=== PATIENT | male | born 1960 | race Caucasian/White ===

== ENCOUNTER 2018-10-13 12:15 | Emergency (ER) | payer SELFPAY ==
[~2018-10-13] VITALS: Ht 177.8 cm; Wt 68.0 kg
[2018-10-13 12:55] VITALS: BP 177/115
--- NOTE | 2018-10-13 13:14 | PHYS DOC ---
Past Medical History Past Medical History: Other Additional Past Medical Histor: L inguinal hernia Past Surgical History: Other Additional Past Surgical Histo: R inguinal hernia Smoking: Cigarettes, 1 Pack Per Day Alcohol Use: None Drug Use: None Adult General Chief Complaint Chief Complaint: GI PROBLEM HPI HPI Patient is a 57 year old male who presents with left inguinal pain and bulge. This is been present intermittently for the past year, gets worse whenever he bears down for lifting at work. Patient was told that he had a hernia at an outlying facility approximately 7 months ago but there was no incarceration or strangulation and so he was discharged and has not followed up with anyone since then. Patient reports that there is no bulge at this time. Denies any nausea or vomiting. [] Review of Systems Review of Systems Constitutional: Denies fever or chills [] Eyes: Denies change in visual acuity, redness, or eye pain [] HENT: Denies nasal congestion or sore throat [] Respiratory: Denies cough or shortness of breath [] Cardiovascular: No chest pain or palpitations[] GI: See history of present illness[] : Denies dysuria or hematuria [] Musculoskeletal: Denies back pain or joint pain [] Integument: Denies rash or skin lesions [] Neurologic: Denies headache, focal weakness or sensory changes [] Endocrine: Denies polyuria or polydipsia [] All other systems were reviewed and found to be within normal limits, except as documented in this note. Allergies Allergies Allergies Coded Allergies Type Severity Reaction Last Updated Verified No Known Drug Allergies 10/13/18 No Physical Exam Physical Exam Constitutional: Well developed, well nourished, no acute distress, non-toxic appearance. [] HENT: Normocephalic, atraumatic, bilateral external ears normal, oropharynx moist, no oral exudates, nose normal. [] Eyes: PERRLA, EOMI, conjunctiva normal, no discharge. [] Neck: Normal range of motion, no tenderness, supple, no stridor. [] Cardiovascular:Heart rate regular rhythm, no murmur [] Lungs & Thorax: Bilateral breath sounds clear to auscultation [] Abdomen: Bowel sounds normal, soft, no tenderness, no masses, no pulsatile masses. exam: Normal male, circumcised, bilateral descended testes, no tenderness, no hernia palpated. [] Skin: Warm, dry, no erythema, no rash. [] Back: No tenderness, no CVA tenderness. [] Extremities: No tenderness, no cyanosis, no clubbing, ROM intact, no edema. [] Neurologic: Alert and oriented X 3, normal motor function, normal sensory function, no focal deficits noted. [] Psychologic: Affect normal, judgement normal, mood normal. [] Current Patient Data Vital Signs Vital Signs Date Time Temp Pulse Resp B/P (MAP) Pulse Ox O2 Delivery O2 Flow Rate FiO2 10/13/18 12:55 97.8 95 16 177/115 (135) 99 Room Air 97.8 EKG EKG [] Radiology/Procedures Radiology/Procedures [] Course & Med Decision Making Course & Med Decision Making Pertinent Labs and Imaging studies reviewed. (See chart for details) Medical decision making: Patient appears to have a left inguinal hernia by history. There is no evidence of incarceration or strangulation at this time. Arranging social media strategist consult to see what assistance is available to help this patient obtain the surgeries that he is able to work on my given that he has no health insurance at this time[] Dragon Disclaimer Dragon Disclaimer This electronic medical record was generated, in whole or in part, using a voice recognition dictation system. Departure Departure Impression: Primary Impression: Hernia Disposition: 01 HOME, SELF-CARE Condition: GOOD Referrals: NO PCP (PCP) BEAU RICHTER MD Follow-up in 2 days Patient Instructions: Hernia Additional Instructions: Follow-up with your regular doctor or surgeon in 2 days, if you do not have a primary care physician, list of local low-cost clinics will be provided for you. Contact Lorie at [phone], one of the [facility] social workers to be better plugged in to medical resources. Return to the ER if unable to put the hernia back in place or any other concerns. KIM PALACIOS DO Oct 13, 2018 13:14
== END 2018-10-13 14:16 | disposition home or self-care (01) ==
LOC: ER 12:15
DX: K40.90 Unilateral inguinal hernia, without obstruction or gangrene, not specified as recurrent (principal); F17.210 Nicotine dependence, cigarettes, uncomplicated; Z98.890 Other specified postprocedural states
CPT/HCPCS: 99281